=== PATIENT | female | born 1990 | race Caucasian/White ===

== ENCOUNTER 2019-02-10 14:19 | Emergency (ER) | payer OTHER ==
[~2019-02-10] VITALS: Ht 152.4 cm; Wt 68.0 kg
[2019-02-10 14:25] VITALS: BP 149/68
--- NOTE | 2019-02-10 14:30 | NUR ---
BIB SELF. AAOX 4. C/O R WRIST PAIN 01/22, THROBBING. PT STATES THAT SHE WAS DIAGNOSED WITH CARPAL TUNNEL TO R WRIST. + MOVEMENT TO R FINGERS, CAP REFILL < 3 SECS. PT STATES NO TRAUMA. HOB UP. BED SIDE RAILS UP X 1. ON LOW BED POSITION, LOCKED. ER MADE AWARE OF PT STATUS.
[2019-02-10 15:08] VITALS: BP 149/68
== END 2019-02-10 15:08 | disposition home or self-care (01) ==
LOC: MED 14:19
DX: M25.531 Pain in right wrist (principal)
CPT/HCPCS: 99282

== ENCOUNTER 2019-06-07 11:56 | Emergency (ER) | payer OTHER ==
[~2019-06-07] VITALS: Ht 149.9 cm; Wt 74.8 kg
--- NOTE | 2019-06-07 12:05 | NUR ---
Patient ambulated to bed 2. RN evaluating patient at bedside.
[2019-06-07 12:08] VITALS: BP 149/81
[2019-06-07 12:10] VITALS: BP 149/81
--- NOTE | 2019-06-07 12:10 | NUR ---
PATIENT IS A 28 Y/O FEMALE WHO PRESENTS TO THE ED C/O ABD PAIN. PER PT PAIN HAS BEEN BOTHERING HER X7 MONTHS S/P EPISODE OF FOOD POISONING. PT DENIES PAIN AT THIS TIME, BUT REPORTS LUQ AND LOWER ABD DISCOMFORT, PREV TOOK OMEPRAZOLE BEFORE ARRIVAL. PT DENIES CP, SOB, REPORTS NAUSEA DENIES VOMITING/DIARRHEA. PT AWAKE AND ALERT, RR EVEN/UNLABORED. PT REPOSITIONED FOR COMFORT, BED IN LOWEST POSITION. ER MD DR. SHARMA NOTIFIED. WILL CONTINUE TO MONITOR. PMH--ASTHMA NKA
--- NOTE | 2019-06-07 12:49 | NUR ---
PATIENT D/C BY DR. SHARMA. RX OF MACROBID CAPSULE 100MG AND PEPCID 20MG. ID BAND REMOVED. PT AMB AT THIS TIME. ALL QUESTIONS ADDRESSED. PAPER SIGNED.
== END 2019-06-07 12:49 | disposition home or self-care (01) ==
LOC: MED 11:56
DX: K29.70 Gastritis, unspecified, without bleeding (principal); N39.0 Urinary tract infection, site not specified; J45.909 Unspecified asthma, uncomplicated
CPT/HCPCS: 99283

== ENCOUNTER 2019-11-16 07:27 | Emergency (ER) | payer OTHER ==
[~2019-11-16] VITALS: Ht 149.9 cm; Wt 68.0 kg
[2019-11-16 07:30] VITALS: BP 136/81
--- NOTE | 2019-11-16 07:33 | NUR ---
PATIENT AMBULATED TO BED 2 AT THIS TIME.
--- NOTE | 2019-11-16 07:36 | NUR ---
29/F BIB SELF C/O COUGH/CONGESTION, HEADACHE, SORE THROAT X 4 DAYS. PT TOOK TYLENOL AT 6.30 TODAY. DENIES PAIN AT THIS TIME. HX: ASTHMA PATIENT POSITIONED FOR COMFORT; HOB ELEVATED; BEDRAILS UP X1; BED DOWN. ER MD MADE AWARE OF PT STATUS.
[2019-11-16 07:52] VITALS: BP 136/81
== END 2019-11-16 07:52 | disposition home or self-care (01) ==
LOC: MED 07:27
DX: R05 Cough (principal); F17.210 Nicotine dependence, cigarettes, uncomplicated
CPT/HCPCS: 99283